=== PATIENT | male | born 1950 | race Asian ===

== ENCOUNTER 2016-08-13 16:53 | Emergency (ER) | payer OTHER ==
[2016-08-13 17:07] VITALS: BP 146/91; PULSE 128; RESP 18; TEMP 98.3; O2SAT 96
[2016-08-13] MEDS ORDERED: OLME0.09 PO (17:13)
[2016-08-13] MEDS ORDERED: LOSA25TA PO (17:13)
[2016-08-13] MEDS ORDERED: HYDR-3533 PO (17:13)
[2016-08-13] MEDS ORDERED: FOLI1TAB6 (17:13)
[2016-08-13] MEDS ORDERED: VITATAB11 (17:13)
[2016-08-13] MEDS ORDERED: TH GCAP (17:13)
[2016-08-13] MEDS ORDERED: VITA2000 PO (17:13)
[2016-08-13] MEDS ORDERED: MULTTAB4 (17:13)
[2016-08-13] MEDS ORDERED: ANTICAP6 (17:14)
[2016-08-13] MEDS ORDERED: KRIL500C2 (17:14)
[2016-08-13] MEDS ORDERED: SODIUM CHLOR 0.9% 1000 ML INJ 1,000 ML IV ONE (18:30)
--- NOTE | 2016-08-13 18:35 | PD ---
HPI Chief Complaint: Alcohol/Drug Intoxication Time Seen by Provider: 18:32 Travel History International Travel<30 days: No Contact w/Intl Traveler<30days: No Traveled to known affect area: No History of Present Illness HPI 66-year-old male presents to the emergency department requesting detox from alcohol. Patient states that he has streaks 4 alcoholic beverages daily for many years. He states he has tried to detox on his own in the past, but is never been successful. The patient states he has never had alcohol withdrawal seizures. He states he has had 2 drinks today. Patient states that please brought him in because he did not feel safe enough to drive. He denies any thoughts of hurting himself or anybody else. Patient has history of hypertension. Patient denies any headache, chest pain, shortness breath, abdominal pain, nausea, vomiting, diarrhea. PFSH Past Medical History Hypertension: Yes Past Surgical History Surgical History: No Previous Surgery Social History Alcohol Use: Yes (2-4 SHOTS/DAILY) Tobacco Use: Yes (1/2 PPD) Substance Use: No Allergies-Medications (Allergen,Severity, Reaction): Coded Allergies: No Known Allergies (Unverified , 08/13/16) Reported Meds & Prescriptions Reported Meds & Active Scripts Active Reported Antioxidant (Multiple Vitamins W/ Minerals) 1 Cap Cap Krill Oil 500 Mg Capsule 300 Vitamin D3 (Cholecalciferol) 2,000 Unit Cap 2,000 Units PO DAILY Glucosamine & Chondroitin Cap (Glucosam/Chondr/Collagn/Hyalur) 1 Each Capsule Multi Vitamin Mens (Multiple Vitamin) 1 Tab Tab Olmesartan 20 Mg Tab 20 Mg PO DAILY Losartan (Losartan Potassium) 25 Mg Tab 12.5 Mg PO DAILY Lortab (Hydrocodone-Acetaminophen) 5-325 Mg Tab 1 Tab PO Q4H PRN Vitamin B Complex (B-Complex Vitamins) 1 Tab Folic Acid 1 Mg Tablet Review of Systems Except as stated in HPI: all other systems reviewed are Neg Physical Exam Narrative GENERAL: Well-nourished, well-developed male patient, afebrile. SKIN: Focused skin assessment warm/dry. HEAD: Normocephalic. Atraumatic. EYES: No scleral icterus. No injection or drainage. NECK: Supple, trachea midline. No JVD or lymphadenopathy. CARDIOVASCULAR: Regular rhythm without murmurs, gallops, or rubs. Patient is slightly tachycardic. RESPIRATORY: Breath sounds equal bilaterally. No accessory muscle use. Lungs sounds are clear to auscultation. GASTROINTESTINAL: Abdomen soft, non-tender, nondistended. MUSCULOSKELETAL: No cyanosis, or edema. PSYCHIATRIC: No delusional thought processes. No hallucinations. Data Data Last Documented VS Vital Signs Date Time Temp Pulse Resp B/P Pulse Ox O2 Delivery O2 Flow Rate FiO2 08/13/16 18:48 98.6 106 18 166/82 97 Room Air Orders Iv Access Insert/Monitor (08/13/16 18:29) Complete Blood Count With Diff (08/13/16 18:29) Alcohol (Ethanol) (08/13/16 18:29) Comprehensive Metabolic Panel (08/13/16 18:29) Sodium Chlor 0.9% 1000 Ml Inj (Ns 1000 M (08/13/16 18:30) Labs Laboratory Tests Test 08/13/16 18:45 White Blood Count 6.0 TH/MM3 Red Blood Count 3.89 MIL/MM3 Hemoglobin 14.2 GM/DL Hematocrit 42.7 % Mean Corpuscular Volume 109.6 FL Mean Corpuscular Hemoglobin 36.4 PG Mean Corpuscular Hemoglobin 33.2 % Concent Red Cell Distribution Width 13.6 % Platelet Count 113 TH/MM3 Mean Platelet Volume 7.5 FL Neutrophils (%) (Auto) 71.0 % Lymphocytes (%) (Auto) 17.6 % Monocytes (%) (Auto) 11.1 % Eosinophils (%) (Auto) 0.1 % Basophils (%) (Auto) 0.2 % Neutrophils # (Auto) 4.3 TH/MM3 Lymphocytes # (Auto) 1.1 TH/MM3 Monocytes # (Auto) 0.7 TH/MM3 Eosinophils # (Auto) 0.0 TH/MM3 Basophils # (Auto) 0.0 TH/MM3 CBC Comment DIFF FINAL Differential Comment Sodium Level 135 MEQ/L Potassium Level 4.7 MEQ/L Chloride Level 95 MEQ/L Carbon Dioxide Level 20.9 MEQ/L Anion Gap 19 MEQ/L Blood Urea Nitrogen 10 MG/DL Creatinine 0.70 MG/DL Estimat Glomerular Filtration 113 ML/MIN Rate Random Glucose 78 MG/DL Calcium Level 8.2 MG/DL Total Bilirubin 0.9 MG/DL Aspartate Amino Transf 105 U/L (AST/SGOT) Alanine Aminotransferase 35 U/L (ALT/SGPT) Alkaline Phosphatase 65 U/L Total Protein 7.0 GM/DL Albumin 2.9 GM/DL Ethyl Alcohol Level 324 MG/DL [facility] Medical Decision Making Medical Screen Exam Complete: Yes Emergency Medical Condition: Yes Medical Record Reviewed: Yes Differential Diagnosis Alcohol intoxication versus electrolyte abnormality versus dehydration Narrative Course 66-year-old male presents to the emergency department requesting detox from alcohol. Patient denies any medical complaints at this time. He is slightly tachycardic on arrival, heart rate 128. CBC, CMP, alcohol level are ordered and pending. Patient is given normal saline 1 L IV bolus. [facility] be [facility] to see if [facility] have a male detox bed available. CBC shows no acute abnormality. CMP shows anion gap of 19, most likely due to alcohol. Alcohol level is 324. I called [facility] who states they are at capacity for male detox beds. The patient will be given information to contact [facility] to see if a bed becomes available. Patient will be discharge once he is clinically sober or if he can contact somebody to give him a ride home. The patient was discharged in stable condition with instructions, including return instructions and follow up instructions. Diagnosis Primary Impression: Alcohol intoxication Qualified Code: F10.920 - Alcohol intoxication, uncomplicated Referrals: [facility] for appointment Patient Instructions: Alcohol Intoxication (ED), General Instructions Additional Instructions: Please call [facility] to see when a bed becomes available for detox. Follow-up with your primary care physician. Return to the emergency department for any acute worsening of symptoms. Med/Other Pt SpecificInfo: No Change to Meds Disposition: 01 DISCHARGE HOME Condition: Stable Danita Carr Aug 13, 2016 18:35
[2016-08-13 18:48] VITALS: BP 166/82; PULSE 106; RESP 18; TEMP 98.6; O2SAT 97
[2016-08-13 18:54] LABS: AUTOMATED NEUTROPHIL # 4.3 TH/MM3 (1.8-7.7); BASOPHIL % 0.2 % (0.0-2.0); EOSINOPHIL % 0.1 % (0.0-4.0); HEMATOCRIT 42.7 % (39.0-51.0); HEMO FLAGS DIFF FINAL; LYMPH % 17.6 % (9.0-44.0); LYMPHOCYTE # 1.1 TH/MM3 (1.0-4.8); MEAN CELL VOLUME 109.6 FL (80.0-100.0); MEAN CORPUSCULAR HEMOGLOBIN 36.4 PG (27.0-34.0); MEAN CORPUSCULAR HGB CONC 33.2 % (32.0-36.0); MONO % 11.1 % (0.0-8.0); PLATELET COUNT 113 TH/MM3 (150-450); RED BLOOD COUNT 3.89 MIL/MM3 (4.50-5.90); RED CELL DISTRIBUTION WIDTH 13.6 % (11.6-17.2)
[2016-08-13 19:16] LABS: ALKALINE PHOSPHATASE 65 U/L (45-117); ALT (GPT) 35 U/L (12-78); ANION GAP 19 MEQ/L (5-15); AST (GOT) 105 U/L (15-37); BICARBONATE 20.9 MEQ/L (21.0-32.0); BLOOD UREA NITROGEN 10 MG/DL (7-18); CHLORIDE 95 MEQ/L (98-107); GLOMERULAR FILTRATION RATE 113 ML/MIN (>89); POTASSIUM 4.7 MEQ/L (3.5-5.1); SODIUM (NA) 135 MEQ/L (136-145); TOTAL BILIRUBIN ADULT 0.9 MG/DL (0.2-1.0)
[2016-08-14 01:22] VITALS: BP 156/78; PULSE 98; RESP 16; O2SAT 98
[2016-08-14 04:26] VITALS: BP_SYST 138; BP_SYST 18; BP_DIAS 76; PULSE 96; RESP 16; O2SAT 96
[2016-08-14 06:30] VITALS: BP 140/74; PULSE 94; RESP 14; O2SAT 98
[2016-08-14 07:25] VITALS: BP 139/91
== END 2016-08-14 07:24 | disposition home or self-care (01) ==
LOC: NEPD 16:53
DX: F10.120 Alcohol abuse with intoxication, uncomplicated (principal); R00.0 Tachycardia, unspecified; R56.9 Unspecified convulsions; I10 Essential (primary) hypertension; F17.200 Nicotine dependence, unspecified, uncomplicated; Z79.899 Other long term (current) drug therapy
CPT/HCPCS: 80053; 80307; 85025; 96360; 96361; 99284; J7030

== ENCOUNTER 2016-08-16 06:06 | Emergency (ER) | payer OTHER ==
[~2016-08-16] VITALS: Ht 170.2 cm; Wt 62.0 kg
[~2016-08-16 06:06] MED LIST: ANTICAP6; FOLI1TAB6; HYDR-3533 PO; KRIL500C2; LOSA25TA PO; MULTTAB4; OLME0.09 PO; TH GCAP; VITA2000 PO; VITATAB11
[2016-08-16 06:13] VITALS: BP 145/88; PULSE 90; RESP 16; O2SAT 97
--- NOTE | 2016-08-16 06:45 | PD ---
HPI Chief Complaint: Fall Time Seen by Provider: 06:45 Travel History International Travel<30 days: No Contact w/Intl Traveler<30days: No Traveled to known affect area: No History of Present Illness HPI 66-year-old male came to the emergency room from [facility] after he fell and injured his forehead. Patient was brought in collared. He was just taken to [facility] yesterday for alcohol rehabilitation. Patient is little tachycardic and shaky. This is the second time he is falling in past 24 hours. Currently he is awake and says he knows he is in [place] but could not narrow it down any further. PFSH Past Medical History Narrative Medical List of his past medical, surgical, social and family history was reviewed from the nursing note. Hypertension: Yes Medical other: Yes (ETOH ABUSE) Past Surgical History Surgical History: No Previous Surgery Social History Alcohol Use: Yes (2-4 SHOTS/DAILY) Tobacco Use: Yes (1/2 PPD) Substance Use: No Allergies-Medications (Allergen,Severity, Reaction): Coded Allergies: No Known Allergies (Unverified , 08/16/16) Comments No known drug allergies. Reported Meds & Prescriptions Reported Meds & Active Scripts Active Reported Antioxidant (Multiple Vitamins W/ Minerals) 1 Cap Cap Krill Oil 500 Mg Capsule 300 Vitamin D3 (Cholecalciferol) 2,000 Unit Cap 2,000 Units PO DAILY Glucosamine & Chondroitin Cap (Glucosam/Chondr/Collagn/Hyalur) 1 Each Capsule Multi Vitamin Mens (Multiple Vitamin) 1 Tab Tab Olmesartan 20 Mg Tab 20 Mg PO DAILY Losartan (Losartan Potassium) 25 Mg Tab 12.5 Mg PO DAILY Lortab (Hydrocodone-Acetaminophen) 5-325 Mg Tab 1 Tab PO Q4H PRN Vitamin B Complex (B-Complex Vitamins) 1 Tab Folic Acid 1 Mg Tablet Narrative Medication List of her past medical, surgical, social and family history was reviewed from the nursing note. Review of Systems Except as stated in HPI: all other systems reviewed are Neg Physical Exam Narrative GENERAL: Awake, confused, no obvious distress SKIN: Focused skin assessment warm/dry. 2 cm linear laceration on the forehead that has Steri-Strips. No active bleeding HEAD: Atraumatic. Normocephalic. EYES: Pupils equal and round. No scleral icterus. No injection or drainage. ENT: No nasal bleeding or discharge. Mucous membranes pink and moist. NECK: Trachea midline. No JVD. CARDIOVASCULAR: Regular rate and rhythm. No murmur appreciated. RESPIRATORY: No accessory muscle use. Clear to auscultation. Breath sounds equal bilaterally. GASTROINTESTINAL: Abdomen soft, non-tender, nondistended. Hepatic and splenic margins not palpable. MUSCULOSKELETAL: No obvious deformities. No clubbing. No cyanosis. No edema. NEUROLOGICAL: Awake and alert. No obvious cranial nerve deficits. Motor grossly within normal limits. Normal speech. PSYCHIATRIC: Appropriate mood and affect; insight and judgment normal. Data Data Last Documented VS Vital Signs Date Time Temp Pulse Resp B/P Pulse Ox O2 Delivery O2 Flow Rate FiO2 08/16/16 08:45 86 16 138/[address] Brain W/O Iv Contrast(Rout) (08/16/16 ) Ct Cerv Spine W/O Contrast (08/16/16 ) Tetanus/Diphtheria Tox Adult (Tetanus/Di (08/16/16 07:00) MDM Medical Decision Making Medical Screen Exam Complete: Yes Emergency Medical Condition: Yes Medical Record Reviewed: Yes Differential Diagnosis Intracranial bleed, cervical fracture Narrative Course 6:[address] scan of the head and C-spine has been ordered. Patient's tetanus status is unknown. I've ordered a tetanus shot here. Patient will be signed over to the oncoming ER physician. Procedures EKG Prior to Arrival: Sandi Garcia MD Aug 16, 2016 06:45 EKG Prior to Arrival: Sandi Garcia MD Aug 16, 2016 06:45
[2016-08-16] MEDS ORDERED: TETANUS/DIPHTHERIA TOXOID ADULT 0.5 ML VIAL IM ONE (07:00)
--- NOTE | 2016-08-16 07:08 | RADRPT ---
EXAM DATE/TIME: 08/16/2016 06:52 [facility] COMPARISON: No previous studies available for comparison. INDICATIONS : Trauma; fall. RADIATION DOSE: 56.35 CTDIvol (mGy) MEDICAL HISTORY : Hypertension. ETOH abuse SURGICAL HISTORY : None. ENCOUNTER: Initial ACUITY: 1 day PAIN SCALE: 5/10 LOCATION: cranial TECHNIQUE: Multiple contiguous axial images were obtained of the head. Using automated exposure control and adj ustment of the mA and/or kV according to patient size, radiation dose was kept as low as reasonably a chievable to obtain optimal diagnostic quality images. DICOM format image data is available electro nically for review and comparison. FINDINGS: CEREBRUM: The ventricles are normal for age. No evidence of midline shift, mass lesion, hemorrhage or acute in farction. No extra-axial fluid collections are seen. POSTERIOR FOSSA: The cerebellum and brainstem are intact. The 4th ventricle is midline. The cerebellopontine angle i s unremarkable. EXTRACRANIAL: The visualized portion of the orbits is intact. SKULL: The calvaria is intact. No evidence of skull fracture. CONCLUSION: Normal examination for a patient of this age. Thanh Herrera MD on August 16, 2016 at 7:05 Board Certified Radiologist. This report was verified electronically.
--- NOTE | 2016-08-16 07:12 | RADRPT ---
EXAM DATE/TIME: 08/16/2016 06:54 [facility] COMPARISON: No previous studies available for comparison. INDICATIONS : Trauma; fall. RADIATION DOSE: 33.31 CTDIvol (mGy) MEDICAL HISTORY : Hypertension. ETOH abuse SURGICAL HISTORY : None. ENCOUNTER: Initial ACUITY: 1 day PAIN SCALE: 5/10 LOCATION: neck TECHNIQUE: Volumetric scanning of the cervical spine was performed. Multiplanar reconstructions in the sagittal, coronal and oblique axial planes were performed. Using automated exposure control and adjustment o f the mA and/or kV according to patient size, radiation dose was kept as low as reasonably achievable to obtain optimal diagnostic quality images. DICOM format image data is available electronically f or review and comparison. FINDINGS: VERTEBRAE: Moderate diffuse primary degenerative changes are noted throughout the cervical spine. There is disc degeneration with disc space narrowing at multiple levels. There is mild anterior subluxation of C7 o guy T1 by approximately 3 mm. No acute bony fracture is demonstrated. ALIGNMENT: No evidence of subluxation. C2-C3: The bony spinal canal is normal in size. No evidence of disc bulge or herniation. The neural forami na are bilaterally patent. C3-C4: The bony spinal canal is normal in size. No evidence of disc bulge or herniation. The neural forami na are bilaterally patent. C4-C5: The bony spinal canal is normal in size. No evidence of disc bulge or herniation. There is narrowing of the left neural foramina from facet arthritis. C5-C6: Broad-based bulging disc osteophyte complex. Narrowing of the neural foramina bilaterally. C6-C7: Broad-based bulging disc osteophyte complex. The neural foramina are patent. C7-T1: The bony spinal canal is normal in size. No evidence of disc bulge or herniation. The neural forami na are bilaterally patent. CONCLUSION: 1. No acute bony fracture. 2. Moderate diffuse primary bony degenerative changes, disc degeneration and disc space narrowing thr oughout the cervical spine. 3. Mild anterior subluxation of C7 over T1 most likely from laxity of ligaments. Thanh Herrera MD on August 16, 2016 at 7:06 Board Certified Radiologist. This report was verified electronically.
--- NOTE | 2016-08-16 08:34 | PD ---
Physical Exam Narrative Received sign out from previous provider to follow up CT brain and cspine results and reevaluate patient. 66yo M from [facility] here after fall. CT cspine showed no acute bony fracture. Degenerative changes. There is mild anterior subluxation of C7 over T1 most likely from laxity of ligaments. Informed pt to follow up as needed. CT brain negative. Pt does not have any current complaints. No focal neurologic deficits. Data Data Last Documented VS Vital Signs Date Time Temp Pulse Resp B/P Pulse Ox O2 Delivery O2 Flow Rate FiO2 08/16/16 06:18 102 16 98 Room Air 08/16/16 06:13 145/[address] Brain W/O Iv Contrast(Rout) (08/16/16 ) Ct Cerv Spine W/O Contrast (08/16/16 ) Tetanus/Diphtheria Tox Adult (Tetanus/Di (08/16/16 07:00) MDM Supervised Visit with AMOL: No Diagnosis Primary Impression: Fall Qualified Code: W19.XXXA - Fall, initial encounter Patient Instructions: General Instructions Departure Forms: Tests/Procedures Additional Instruction: Patient is to go back to [facility] Chasity Hubbard DO Aug 16, 2016 08:34
[2016-08-16 08:45] VITALS: BP 138/72
== END 2016-08-16 08:52 | disposition home or self-care (01) ==
LOC: NEPC 06:06
DX: S13.180A Subluxation of C7/T1 cervical vertebrae, initial encounter (principal); S01.81XA Laceration without foreign body of other part of head, initial encounter; I10 Essential (primary) hypertension; F17.200 Nicotine dependence, unspecified, uncomplicated; W19.XXXA Unspecified fall, initial encounter; Z91.81 History of falling; Z79.899 Other long term (current) drug therapy; Z23 Encounter for immunization
CPT/HCPCS: 70450; 72125; 90471; 90714

== ENCOUNTER 2016-10-31 19:54 | Inpatient (IN) | payer OTHER, MEDICARE ==
[~2016-10-31] VITALS: Ht 170.2 cm; Wt 58.6 kg
[2016-10-31 19:58] VITALS: BP 140/99; PULSE 135; RESP 14; TEMP 98.4; O2SAT 99
[2016-10-31] MEDS ORDERED: SODIUM CHLOR 0.9% 1000 ML INJ 1,000 ML IV ONE (20:08)
[2016-10-31] MEDS ORDERED: SODIUM CHLORIDE 0.9% FLUSH 10 ML FLUSH IVF PRN ×2 (20:15→22:45)
[2016-10-31] MEDS ORDERED: THIAMINE INJ 100 MG in SODIUM CHLORIDE 0.9% INJ 100 ML IV ONE (20:15)
--- NOTE | 2016-10-31 20:15 | PD ---
HPI Chief Complaint: Alcohol/Drug Intoxication Time Seen by Provider: 20:08 Travel History International Travel<30 days: No Contact w/Intl Traveler<30days: No Traveled to known affect area: No History of Present Illness HPI 66-year-old male presents to the emergency department by EMS transport from home where daughter found him on the floor. Unknown downtime. Patient lives in a duplex next to his daughter. Patient was found in a very disheveled soiled and dirty apartment on the floor. Patient denies head pain neck pain back pain chest pain abdominal pain pelvic pain or extremity pain. Patient admits to daily alcohol use and thinks he has not had any alcohol for 10 days. Patient has had bowel and bladder incontinence-patient reports that his cat urinated on him. Patient does not know these had fever or chills. Patient does have history of alcoholism and hypertension. Patient does not know if he taken his blood pressure medications. EMS glucose was 123. PFSH Past Medical History Narrative Medical Hypertension alcoholism tobaccoism; nursing notes reviewed Diminished Hearing: No Hypertension: Yes Tetanus Vaccination: < 5 Years Influenza Vaccination: No Past Surgical History Surgical History: No Previous Surgery Social History Alcohol Use: Yes (denies use in 10 days) Tobacco Use: Yes (1/2 PPD) Substance Use: No Allergies-Medications (Allergen,Severity, Reaction): Coded Allergies: No Known Allergies (Unverified , 10/31/16) Reported Meds & Prescriptions Reported Meds & Active Scripts Active Reported Antioxidant (Multiple Vitamins W/ Minerals) 1 Cap Cap Krill Oil 500 Mg Capsule 300 Vitamin D3 (Cholecalciferol) 2,000 Unit Cap 2,000 Units PO DAILY Glucosamine & Chondroitin Cap (Glucosam/Chondr/Collagn/Hyalur) 1 Each Capsule Multi Vitamin Mens (Multiple Vitamin) 1 Tab Tab Olmesartan 20 Mg Tab 20 Mg PO DAILY Losartan (Losartan Potassium) 25 Mg Tab 12.5 Mg PO DAILY Lortab (Hydrocodone-Acetaminophen) 5-325 Mg Tab 1 Tab PO Q4H PRN Vitamin B Complex (B-Complex Vitamins) 1 Tab Folic Acid 1 Mg Tablet Review of Systems ROS Limitations: Poor Historian Except as stated in HPI: all other systems reviewed are Neg Physical Exam Narrative GENERAL: Well-developed well-nourished disheveled male in no acute distress no respiratory distress vital signs notes mild hypertension and sinus tachycardia GCS 14, mildly confused SKIN: Warm and dry. HEAD: Atraumatic. Normocephalic. No scalp soft tissue swelling hematoma abrasion or laceration extraocular muscles intact EYES: Pupils equal and round. No scleral icterus. No injection or drainage. ENT: No nasal bleeding or discharge. Mucous membranes pink and moist. NECK: Trachea midline. No JVD. No midline tenderness to direct palpation no bony step-off. CARDIOVASCULAR: Regular rate and rhythm. RESPIRATORY: No accessory muscle use. Clear to auscultation. Breath sounds equal bilaterally. GASTROINTESTINAL: Abdomen soft, non-tender, nondistended. Hepatic and splenic margins not palpable. MUSCULOSKELETAL: Extremities without clubbing, cyanosis, or edema. No obvious deformities. NEUROLOGICAL: Awake and alert. No obvious cranial nerve deficits. Motor grossly within normal limits. Five out of 5 muscle strength in the arms and legs. Normal speech. PSYCHIATRIC: Appropriate mood and affect; insight and judgment normal. Data Data Last Documented VS Vital Signs Date Time Temp Pulse Resp B/P (MAP) Pulse Ox O2 Delivery O2 Flow Rate FiO2 10/31/16 21:16 125 15 138/98 (111) 100 Room Air 10/31/16 19:58 98.4 Orders Orders Electrocardiogram (10/31/16 20:08) Complete Blood Count With Diff (10/31/16 20:08) Comprehensive Metabolic Panel (10/31/16 20:08) Magnesium (Mg) (10/31/16 20:08) Ckmb (Isoenzyme) Profile (10/31/16 20:08) Troponin I (10/31/16 20:08) Act Partial Throm Time (Ptt) (10/31/16 20:08) Prothrombin Time / Inr (Pt) (10/31/16 20:08) Urinalysis - C+S If Indicated (10/31/16 20:08) Ct Brain W/O Iv Contrast(Rout) (10/31/16 20:08) Blood Glucose (10/31/16 20:08) Ecg Monitoring (10/31/16 20:08) Iv Access Insert/Monitor (10/31/16 20:08) Oximetry (10/31/16 20:08) Sodium Chloride 0.9% Flush (Ns Flush) (10/31/16 20:15) Sodium Chlor 0.9% 1000 Ml Inj (Ns 1000 M (10/31/16 20:08) Drug Screen, Random Urine (10/31/16 20:08) Alcohol (Ethanol) (10/31/16 20:08) Thiamine Inj (Thiamine Inj) (10/31/16 20:15) Lactic Acid (10/31/16 20:08) Blood Culture (10/31/16 20:08) Ct Cerv Spine W/O Contrast (10/31/16 ) CKMB (10/31/16 21:00) CKMB% (10/31/16 21:00) Chest, Single Ap (10/31/16 ) Lorazepam Inj (Ativan Inj) (10/31/16 22:30) Vital Signs (Adult) Q4H (10/31/16 22:33) Bedside Glucose FRIDA.AC&HS (10/31/16 22:33) Intake + Output FRIDA.QSHIFT (10/31/16 22:33) Alcohol Withdrawal Asmt-Ciwa Q4HX18 (10/31/16 22:33) ^ Seizure Precautions (10/31/16 22:33) Folic Acid (Folate) (11/01/16 09:00) Thiamine (Vit B1) (Vitamin B1) (11/01/16 09:00) Multivitamins-Minerals Therap (Theragran (11/01/16 09:00) Consult Cm-Etoh Abuse Dc Plan (10/31/16 ) Flumazenil Inj (Romazicon Inj) (10/31/16 22:45) Lorazepam (Ativan) (10/31/16 22:45) Lorazepam Inj (Ativan Inj) (10/31/16 22:45) Lorazepam (Ativan) (10/31/16 22:45) Lorazepam Inj (Ativan Inj) (10/31/16 22:45) Lorazepam Inj (Ativan Inj) (10/31/16 22:45) Lorazepam Inj (Ativan Inj) (10/31/16 22:45) Haloperidol Inj (Haldol Inj) (10/31/16 22:45) Admit To Inpatient (10/31/16 ) Vital Signs (Adult) Q4H (10/31/16 22:33) Activity Oob With Assistance (10/31/16 22:33) Table Assembler / Telemetry .CONTINUOUS (10/31/16 22:33) Intake + Output FRIDA.QSHIFT (10/31/16 22:33) Diet Regular Basic (11/01/16 Breakfast) Sodium Chlor 0.9% 1000 Ml Inj (Ns 1000 M (10/31/16 22:33) Sodium Chloride 0.9% Flush (Ns Flush) (10/31/16 22:45) Sodium Chloride 0.9% Flush (Ns Flush) (11/01/16 09:00) Ondansetron Inj (Zofran Inj) (10/31/16 22:45) Comprehensive Metabolic Panel (11/01/16 09:00) Complete Blood Count With Diff (11/01/16 09:00) Creatine Kinase (Cpk) (11/01/16 03:00) Creatine Kinase (Cpk) (11/01/16 09:00) Troponin I (11/01/16 03:00) Troponin I (11/01/16 09:00) Scd Bilateral/Knee High FRIDA.BID (10/31/16 22:33) Peewee Bilateral/Knee High FRIDA.QSHIFT (10/31/16 22:36) Acetaminophen (Tylenol) (10/31/16 22:45) Docusate Sodium-Senna (Marylu-Colace) (11/01/16 09:00) Magnesium Hydroxide Liq (Milk Of Magnesi (10/31/16 22:45) Sennosides (Senokot) (10/31/16 22:45) Bisacodyl Supp (Dulcolax Supp) (10/31/16 22:45) Lactulose Liq (Lactulose Liq) (10/31/16 22:45) Inpatient Certification (10/31/16 ) Admit Order (Ed Use Only) (10/31/16 ) ^ Saline Lock (10/31/16 22:42) Resp Oxygen Tree C Titrat 1-4 L (10/31/16 ) Notify Dr: Other (10/31/16 22:42) Sodium Chloride 0.9% Flush (Ns Flush) (11/01/16 09:00) Sodium Chloride 0.9% Flush (Ns Flush) (10/31/16 22:45) Labs Laboratory Tests Test 10/31/16 20:55 10/31/16 21:00 Lactic Acid Level 3.2 mmol/L White Blood Count 6.2 TH/MM3 Red Blood Count 4.03 MIL/MM3 Hemoglobin 14.1 GM/DL Hematocrit 43.2 % Mean Corpuscular Volume 107.2 FL Mean Corpuscular Hemoglobin 35.0 PG Mean Corpuscular Hemoglobin Concent 32.6 % Red Cell Distribution Width 14.9 % Platelet Count 129 TH/MM3 Mean Platelet Volume 7.9 FL CBC Comment AUTO DIFF Differential Total Cells Counted 100 Neutrophils % (Manual) 64 % Band Neutrophils % 7 % Lymphocytes % 13 % Monocytes % 16 % Neutrophils # (Manual) 4.4 TH/MM3 Differential Comment FINAL DIFF MANUAL Platelet Estimate LOW Platelet Morphology Comment NORMAL Red Cell Morphology Comment NORMAL Prothrombin Time 10.0 SEC Prothromb Time International Ratio 0.9 RATIO Activated Partial Thromboplast Time 20.1 SEC Blood Urea Nitrogen 39 MG/DL Creatinine 1.60 MG/DL Random Glucose 119 MG/DL Total Protein 7.1 GM/DL Albumin 3.2 GM/DL Calcium Level 8.8 MG/DL Magnesium Level 2.6 MG/DL Alkaline Phosphatase 63 U/L Aspartate Amino Transf (AST/SGOT) 81 U/L Alanine Aminotransferase (ALT/SGPT) 24 U/L Total Bilirubin 1.6 MG/DL Sodium Level 146 MEQ/L Potassium Level 3.4 MEQ/L Chloride Level 105 MEQ/L Carbon Dioxide Level 24.5 MEQ/L Anion Gap 17 MEQ/L Estimat Glomerular Filtration Rate 44 ML/MIN Total Creatine Kinase 511 U/L Creatine Kinase MB 5.3 NG/ML Creatine Kinase MB % 1.0 % Troponin I 0.08 NG/ML Ethyl Alcohol Level LESS THAN 3 MG/DL [facility] Medical Decision Making Medical Screen Exam Complete: Yes Emergency Medical Condition: Yes Medical Record Reviewed: Yes Interpretation(s) EKG: Sinus tachycardia rate 128 PT waves consistent with pulmonary disease left anterior fascicular block no acute ST segment elevation no ectopy Differential Diagnosis Altered mental status, syncope, seizure, alcohol withdrawal, sepsis, electrolyte disturbance, minor closed head injury, ICH, cervical spine sprain strain fracture cord injury GI bleed Narrative Course Patient placed on cardiac technician IV access obtained specimens collected and sent for resulting patient administered thiamine 100 mg IV as well as normal saline bolus HemaPrompt Point of Care Internal Pos. & Neg. Controls: Passed Fecal Specimen Occult Blood: Negative Diagnosis Primary Impression: Syncope and collapse Additional Impressions: Alcohol withdrawal Dehydration Elevated troponin I level Acute kidney injury Admitting Information Admitting Physician Requests: Admit Fiona Rosario MD Oct 31, 2016 20:15
[2016-10-31 21:02] VITALS: O2SAT 99
[2016-10-31 21:14] LABS: HEMATOCRIT 43.2 % (39.0-51.0); MEAN CELL VOLUME 107.2 FL (80.0-100.0); MEAN CORPUSCULAR HGB CONC 32.6 % (32.0-36.0); PLATELET COUNT 129 TH/MM3 (150-450); RED BLOOD COUNT 4.03 MIL/MM3 (4.50-5.90); RED CELL DISTRIBUTION WIDTH 14.9 % (11.6-17.2); WHITE BLOOD COUNT 6.2 TH/MM3 (4.0-11.0)
[2016-10-31 21:16] VITALS: BP 138/98; PULSE 125; RESP 15; O2SAT 100
[2016-10-31 21:22] LABS: CHLORIDE 105 MEQ/L (98-107); POTASSIUM 3.4 MEQ/L (3.5-5.1); SODIUM (NA) 146 MEQ/L (136-145)
[2016-10-31 21:26] LABS: ANION GAP 17 MEQ/L (5-15); BICARBONATE 24.5 MEQ/L (21.0-32.0); BLOOD UREA NITROGEN 39 MG/DL (7-18); MAGNESIUM 2.6 MG/DL (1.5-2.5)
[2016-10-31 21:29] LABS: ALT (GPT) 24 U/L (12-78); AST (GOT) 81 U/L (15-37); GLOMERULAR FILTRATION RATE 44 ML/MIN (>89)
[2016-10-31 21:30] LABS: TOTAL BILIRUBIN ADULT 1.6 MG/DL (0.2-1.0)
[2016-10-31 21:31] LABS: ALCOHOL LESS THAN 3 MG/DL (0-5)
[2016-10-31 21:32] LABS: ALKALINE PHOSPHATASE 63 U/L (45-117); CREATINE KINASE 511 U/L (39-308)
[2016-10-31 21:34] LABS: APTT (PATIENT) 20.1 SEC (24.3-30.1); INTERNATIONAL NORMALIZED RATIO 0.9 RATIO
[2016-10-31 21:35] LABS: HEMO FLAGS AUTO DIFF
[2016-10-31 21:38] LABS: BANDS 7 % (0-6); NEUTROPHIL # MANUAL DIFF 4.4 TH/MM3 (1.8-7.7); PLATELET ESTIMATE SMEAR LOW (NORMAL); PLATELET MORPHOLOGY NORMAL (NORMAL); POLYS (SEG NEUTROPHILS) 64 % (16-70); SCAN/DIFF FINAL DIFF MANUAL; WBC DIFF SAMPLE 100
[2016-10-31 21:44] LABS: CKMB 5.3 NG/ML (0.5-3.6)
--- NOTE | 2016-10-31 22:02 | RADRPT ---
EXAM DATE/TIME: 10/31/2016 21:40 [facility] COMPARISON: No previous studies available for comparison. INDICATIONS : Status post unwitnessed fall. Patient found on floor. RADIATION DOSE: 66.37 CTDIvol (mGy) MEDICAL HISTORY : None SURGICAL HISTORY : None. ENCOUNTER: Initial ACUITY: PAIN SCALE: 0/10 LOCATION: cranial TECHNIQUE: Multiple contiguous axial images were obtained of the head. Using automated exposure control and adj ustment of the mA and/or kV according to patient size, radiation dose was kept as low as reasonably a chievable to obtain optimal diagnostic quality images. DICOM format image data is available electro nically for review and comparison. FINDINGS: CEREBRUM: The ventricles are normal for age. No evidence of midline shift, mass lesion, hemorrhage or acute in farction. No extra-axial fluid collections are seen. POSTERIOR FOSSA: The cerebellum and brainstem are intact. The 4th ventricle is midline. The cerebellopontine angle i s unremarkable. EXTRACRANIAL: The visualized portion of the orbits is intact. SKULL: The calvaria is intact. No evidence of skull fracture. CONCLUSION: Normal examination for a patient of this age. No significant change has occurred. Jerod Kim MD on October 31, 2016 at 21:56 Board Certified Radiologist. This report was verified electronically.
--- NOTE | 2016-10-31 22:06 | RADRPT ---
EXAM DATE/TIME: 10/31/2016 21:40 [facility] COMPARISON: CT CERVICAL SPINE W/O CONTRAST, August 16, 2016, 6:54. INDICATIONS : Status post unwitnessed fall. Patient found on floor. RADIATION DOSE: 26.56 CTDIvol (mGy) MEDICAL HISTORY : None SURGICAL HISTORY : None. ENCOUNTER: Initial ACUITY: 1 day PAIN SCALE: 0/10 LOCATION: neck TECHNIQUE: Volumetric scanning of the cervical spine was performed. Multiplanar reconstructions in the sagittal, coronal and oblique axial planes were performed. Using automated exposure control and adjustment o f the mA and/or kV according to patient size, radiation dose was kept as low as reasonably achievable to obtain optimal diagnostic quality images. DICOM format image data is available electronically f or review and comparison. FINDINGS: No acute fracture. Minimal anterolisthesis of C7 on T1 is stable compared with August 16. No prevertebr al soft tissue swelling. Moderate degenerative disc disease. CONCLUSION: 1. Moderate disc disease. No acute fracture. Stable spondylolisthesis of C7 on T1. No prevertebral so ft tissue swelling. No significant change from July 2016. Jerod Kim MD on October 31, 2016 at 22:01 Board Certified Radiologist. This report was verified electronically.
[2016-10-31] MEDS ORDERED: LORazepam 2 MG/ML VIAL IV PUSH ONE (22:30)
--- NOTE | 2016-10-31 22:37 | RADRPT ---
EXAM DATE/TIME: 10/31/2016 22:26 [facility] COMPARISON: No previous studies available for comparison. INDICATIONS : Syncope. MEDICAL HISTORY : Hypertension. ETOH abuse SURGICAL HISTORY : None. ENCOUNTER: Initial ACUITY: 1 day PAIN SCORE: 03/04 LOCATION: Bilateral chest FINDINGS: A single view of the chest demonstrates the lungs to be symmetrically aerated without evidence of mas s, infiltrate or effusion. The cardiomediastinal contours are unremarkable. Osseous structures are intact. CONCLUSION: No acute disease. Jerod Kim MD on October 31, 2016 at 22:34 Board Certified Radiologist. This report was verified electronically.
[2016-10-31] MEDS ORDERED: FLUMAZENIL 0.5 MG/5 ML VIAL IV PUSH PRN (22:45)
[2016-10-31] MEDS ORDERED: MAGNESIUM HYDROXIDE SUSP 30 ML CUP PO PRN (22:45)
[2016-10-31] MEDS ORDERED: HALOPERIDOL LACTATE 5 MG/ML AMP IM PRN (22:45)
[2016-10-31] MEDS ORDERED: LACTULOSE SYRUP 20 GM/30 ML CUP PO PRN (22:45)
[2016-10-31] MEDS ORDERED: ONDANSETRON HCL 4 MG/2 ML VIAL IVP PRN (22:45)
[2016-10-31] MEDS ORDERED: ACETAMINOPHEN 325 MG TAB PO PRN (22:45)
[2016-10-31] MEDS ORDERED: SODIUM CHLORIDE 0.9% FLUSH 10 ML FLUSH IV FLUSH PRN (22:45)
[2016-10-31] MEDS ORDERED: LORazepam 2 MG TAB PO PRN (22:45)
[2016-10-31] MEDS ORDERED: BISACODYL 10 MG SUPP RECTAL PRN (22:45)
[2016-10-31] MEDS ORDERED: SENNOSIDES 8.6 MG TAB PO PRN (22:45)
[2016-10-31] MEDS ORDERED: LORazepam 2 MG/ML VIAL IV PUSH PRN ×4 (22:45)
[2016-10-31] MEDS ORDERED: LORazepam 1 MG TAB PO PRN (22:45)
[2016-10-31] MEDS: SODIUM CHLOR 0.9% 1000 ML INJ 1,000 ML IV SCH (23:00)
[2016-10-31 23:42] VITALS: BP 151/97
[2016-11-01] VITALS (10 sets, daily range): BP systolic 134–159; BP diastolic 88–103; PULSE 80–108; RESP 12–20; TEMP 97.4–98.7; O2SAT 92–100
[2016-11-01 03:49] LABS: CKMB 5.2 NG/ML (0.5-3.6)
[2016-11-01] MEDS ORDERED: NON-FORMULARY DRUG (Olmesartan 20 MG) PO SCH (09:00)
[2016-11-01] MEDS ORDERED: SODIUM CHLORIDE 0.9% FLUSH 10 ML FLUSH IV FLUSH SCH (09:00)
[2016-11-01] MEDS: DOCUSATE SODIUM 50 MG/SENNA 8.6 MG TAB PO SCH ×2 (09:00→21:13)
[2016-11-01] MEDS ORDERED: cloNIDine HCL 0.1 MG TAB PO PRN (09:00)
[2016-11-01] MEDS: THIAMINE HCL 100 MG TAB PO SCH (09:25)
[2016-11-01] MEDS: MULTIVITAMINS/MINERALS THERAPEUTIC TAB PO SCH (09:25)
[2016-11-01] MEDS: FOLIC ACID 1 MG TAB PO SCH (09:25)
[2016-11-01] MEDS: SODIUM CHLORIDE 0.9% FLUSH 10 ML FLUSH IV FLUSH SCH ×2 (09:28→21:13)
[2016-11-01] MEDS: SODIUM CHLOR 0.9% 1000 ML INJ 1,000 ML IV SCH ×2 (09:30→21:14)
--- NOTE | 2016-11-01 09:52 | HHI.HP ---
[facility] Primary Care Physician No Primary Care Physician Admission Diagnosis FAll; alcohol withdrawal; dehydratyion; elevated troponin I Diagnoses: (1) Rhabdomyolysis (2) Fall (3) Acute kidney injury (4) Elevated troponin I level (5) Dehydration (6) Alcohol withdrawal Travel History International Travel<30 Days: No Contact w/Intl Traveler <30 Da: No Traveled to Known Affected Are: No History of Present Illness This is a pleasant 66-year-old male with past medical history of alcoholism and hypertension who presented to the ER yesterday after being found laying on the floor by his daughter. E ALLEN was called. The patient states that he quit drinking alcohol 12 days ago and since then has been getting weaker. Yesterday early in the morning he fell and was unable to get back up. He called his daughter who arrived about an hour later. The patient denies injuring himself. He does state that his but is somewhat sore. He denies syncope. Patient denies nausea vomiting diarrhea hematemesis melena. He states he lives with his daughter in a house. Review of Systems Constitutional: DENIES: Fever, Chills Eyes: DENIES: Blurred vision, Diplopia Ears, nose, mouth, throat: DENIES: Tinnitus, Running Nose Respiratory: DENIES: Cough, Shortness of breath Cardiovascular: DENIES: Chest pain, Palpitations Gastrointestinal: DENIES: Abdominal pain, Black stools, Bloody stools, Diarrhea , Nausea, Vomiting Genitourinary: DENIES: Urgency, Dysuria Musculoskeletal: DENIES: Muscle aches Integumentary: DENIES: Pruritus, Rash Hematologic/lymphatic: DENIES: Lymphadenopathy Neurologic: COMPLAINS OF: Abnormal gait, DENIES: Headache Psychiatric: DENIES: Anxiety, Confusion Past Family Social History Past Medical History Hypertension Alcoholism Reported Medications Allergies Coded Allergies Type Severity Reaction Last Updated Verified No Known Allergies 10/31/16 No Active Scripts Medications Dose Route/Sig Max Daily Dose Days Date Category Antioxidant (Multiple Vitamins W/ Minerals) 1 Cap Cap 08/13/16 Reported Krill Oil 500 Mg Capsule 300 08/13/16 Reported Vitamin D3 (Cholecalciferol) 2,000 Unit Cap 2,000 Units PO DAILY 08/13/16 Reported Glucosamine & Chondroitin Cap (Glucosam/Chondr/Collagn/Hyalur) 1 Each Capsule 08/13/16 Reported Multi Vitamin Mens (Multiple Vitamin) 1 Tab Tab 08/13/16 Reported Olmesartan 20 Mg Tab 20 Mg PO DAILY 08/13/16 Reported Losartan (Losartan Potassium) 25 Mg Tab 12.5 Mg PO DAILY 08/13/16 Reported Lortab (Hydrocodone-Acetaminophen) 5-325 Mg Tab 1 Tab PO Q4H PRN 08/13/16 Reported Vitamin B Complex (B-Complex Vitamins) 1 Tab 08/13/16 Reported Folic Acid 1 Mg Tablet 08/13/16 Reported Allergies: Coded Allergies: No Known Allergies (Unverified , 10/31/16) Family History Reviewed and noncontributory Social History As per history of present illness Physical Exam Vital Signs Vital Signs Date Time Temp Pulse Resp B/P (MAP) Pulse Ox O2 Delivery O2 Flow Rate FiO2 11/01/16 08:00 98.4 108 20 158/103 (121) 98 11/01/16 05:50 99 11/01/16 04:05 97.9 82 12 152/95 (114) 96 11/01/16 01:40 106 11/01/16 01:31 97.4 105 14 142/95 (111) 100 10/31/16 23:42 107 16 151/97 (115) 99 10/31/16 21:16 125 15 138/98 (111) 100 Room Air 10/31/16 21:02 99 10/31/16 20:02 99 Room Air 10/31/16 19:58 98.4 135 14 140/99 (113) 99 Physical Exam GENERAL: Well-nourished, well-developed lean [place] male patient. SKIN: Warm and dry. HEAD: Normocephalic. EYES: No scleral icterus. No injection or drainage. NECK: Supple, trachea midline. No JVD or lymphadenopathy. CARDIOVASCULAR: Regular rate and rhythm without murmurs, gallops, or rubs. RESPIRATORY: Breath sounds equal bilaterally. No accessory muscle use. GASTROINTESTINAL: Abdomen soft, non-tender, nondistended. EXTREMITIES: No cyanosis, or edema. NEUROLOGICAL: Awake, alert, and oriented x 3. Non-focal. No tremors. Laboratory Laboratory Tests Test 10/31/16 20:55 10/31/16 21:00 10/31/16 23:12 11/01/16 03:10 Lactic Acid Level 3.2 2.8 White Blood Count 6.2 Red Blood Count 4.03 Hemoglobin 14.1 Hematocrit 43.2 Mean Corpuscular Volume 107.2 Mean Corpuscular Hemoglobin 35.0 Mean Corpuscular Hemoglobin Concent 32.6 Red Cell Distribution Width 14.9 Platelet Count 129 Mean Platelet Volume 7.9 CBC Comment AUTO DIFF Differential Total Cells Counted 100 Neutrophils % (Manual) 64 Band Neutrophils % 7 Lymphocytes % 13 Monocytes % 16 Neutrophils # (Manual) 4.4 Differential Comment FINAL DIFF MANUAL Platelet Estimate LOW Platelet Morphology Comment NORMAL Red Cell Morphology Comment NORMAL Prothrombin Time 10.0 Prothromb Time International Ratio 0.9 Activated Partial Thromboplast Time 20.1 Blood Urea Nitrogen 39 Creatinine 1.60 Random Glucose 119 Total Protein 7.1 Albumin 3.2 Calcium Level 8.8 Magnesium Level 2.6 Alkaline Phosphatase 63 Aspartate Amino Transf (AST/SGOT) 81 Alanine Aminotransferase (ALT/SGPT) 24 Total Bilirubin 1.6 Sodium Level 146 Potassium Level 3.4 Chloride Level 105 Carbon Dioxide Level 24.5 Anion Gap 17 Estimat Glomerular Filtration Rate 44 Total Creatine Kinase 511 628 Creatine Kinase MB 5.3 5.2 Creatine Kinase MB % 1.0 0.8 Troponin I 0.08 0.09 Ethyl Alcohol Level LESS THAN 3 Date/Time Source Procedure Growth Status 10/31/16 21:00 Blood Peripheral Aerobic Blood Culture Pending Received 10/31/16 21:00 Blood Peripheral Anaerobic Blood Culture Pending Received Result Diagram: 10/31/16209910/31/162099 Caprini VTE Risk Assessment Caprini VTE Risk Assessment: Mod/High Risk (score >= 2) Caprini Risk Assessment Model Point Value = 1 Point Value = 2 Point Value = 3 Point Value = 5 Age 41-60 Minor surgery BMI > 25 kg/m2 Swollen legs Varicose veins or History of unexplained or recurrent spontaneous Oral contraceptives or hormone replacement Sepsis (< 1 month) Serious lung disease, including pneumonia (< 1 month) Abnormal pulmonary function Acute myocardial infarction Congestive heart failure (< 1 month) History of inflammatory bowel disease Medical patient at bed rest Age 61-74 Arthroscopic surgery Major open surgery (> 45 min) Laparoscopic surgery (> 45 min) Malignancy Confined to bed (> 72 hours) Immobilizing plaster cast Central venous access Age >= 75 History of VTE Family history of VTE Factor V Leiden Prothrombin [id number] Lupus anticoagulant Anticardiolipin antibodies Elevated serum homocysteine Heparin-induced thrombocytopenia Other congenital or acquired thrombophilia Stroke (< 1 month) Elective arthroplasty Hip, pelvis, or leg fracture Acute spinal cord injury (< 1 month) Prophylaxis Regimen Total Risk Factor Score Risk Level Prophylaxis Regimen 0-1 Low Early ambulation 2 Moderate Order ONE of the following: *Sequential Compression Device (SCD) *Heparin 5000 units SQ BID 3-4 Higher Order ONE of the following medications: *Heparin 5000 units SQ TID *Enoxaparin/Lovenox 40 mg SQ daily (WT < 150 kg, CrCl > 30 mL/min) *Enoxaparin/Lovenox 30 mg SQ daily (WT < 150 kg, CrCl > 10-29 mL/min) *Enoxaparin/Lovenox 30 mg SQ BID (WT < 150 kg, CrCl > 30 mL/min) AND/OR *Sequential Compression Device (SCD) 5 or more Highest Order ONE of the following medications: *Heparin 5000 units SQ TID (Preferred with Epidurals) *Enoxaparin/Lovenox 40 mg SQ daily (WT < 150 kg, CrCl > 30 mL/min) *Enoxaparin/Lovenox 30 mg SQ daily (WT < 150 kg, CrCl > 10-29 mL/min) *Enoxaparin/Lovenox 30 mg SQ BID (WT < 150 kg, CrCl > 30 mL/min) AND *Sequential Compression Device (SCD) Assessment and Plan Assessment and Plan 66-year-old male -Status post fall at home. Continue physical therapy. Head CT and cervical spine CT negative. -Alcoholism, per the patient last drink was 12 days ago. No sign of withdrawal on exam. Continue alcohol withdrawal protocol and rally pack. Case management consulted for alcohol cessation programs. -Rhabdomyolysis. Continue normal saline, follow total CK. -Acute kidney injury secondary to dehydration. Continue IV fluids. -Mild troponin 1 elevation without upward trend. Likely secondary to the rhabdomyolysis. No history of chest pain or coronary artery disease. EKG with sinus tachycardia, left anterior fascicular block. No significant ST changes. -Macrocytosis secondary to alcoholism. Hemoglobin normal. Continue folic acid. -Hypertension. Resume losartan 1 kidney function improved. -DVT prophylaxis with SCDs. Sabine Paul MD Nov 01, 2016 09:52
[2016-11-01 10:07] LABS: AUTOMATED NEUTROPHIL # 3.1 TH/MM3 (1.8-7.7); BASOPHIL % 0.9 % (0.0-2.0); EOSINOPHIL % 0.2 % (0.0-4.0); HEMATOCRIT 41.8 % (39.0-51.0); HEMO FLAGS DIFF FINAL; LYMPH % 16.3 % (9.0-44.0); LYMPHOCYTE # 0.6 TH/MM3 (1.0-4.8); MEAN CORPUSCULAR HEMOGLOBIN 35.1 PG (27.0-34.0); MEAN CORPUSCULAR HGB CONC 32.5 % (32.0-36.0); MONO % 8.5 % (0.0-8.0); NEUT % 74.1 % (16.0-70.0); PLATELET COUNT 116 TH/MM3 (150-450); RED BLOOD COUNT 3.87 MIL/MM3 (4.50-5.90)
[2016-11-01 10:26] LABS: CHLORIDE 112 MEQ/L (98-107); SODIUM (NA) 149 MEQ/L (136-145)
[2016-11-01 10:30] LABS: ANION GAP 14 MEQ/L (5-15); BICARBONATE 23.2 MEQ/L (21.0-32.0); BLOOD UREA NITROGEN 31 MG/DL (7-18)
[2016-11-01 10:33] LABS: ALT (GPT) 23 U/L (12-78); AST (GOT) 69 U/L (15-37); GLOMERULAR FILTRATION RATE 61 ML/MIN (>89)
[2016-11-01 10:34] LABS: TOTAL BILIRUBIN ADULT 0.9 MG/DL (0.2-1.0)
[2016-11-01 10:36] LABS: ALKALINE PHOSPHATASE 56 U/L (45-117); CREATINE KINASE 558 U/L (39-308)
[2016-11-01 10:48] LABS: CKMB 4.5 NG/ML (0.5-3.6)
--- NOTE | 2016-11-01 13:58 | EKG ---
Date Performed: 10/31/2016 Time Performed: 21:06:21 PTAGE: 66 years EKG: SINUS TACHYCARDIA PATTERN CONSISTENT WITH PULMONARY DISEASE LEFT ANTERIOR FASCICULAR BLOCK MINIMAL ST DEPRESSION ABNORMAL ECG NO PREVIOUS TRACING DOCTOR: Clay Ryder Interpretating Date/Time 11/01/2016 13:58:00
[2016-11-02] VITALS (7 sets, daily range): BP systolic 121–159; BP diastolic 74–94; PULSE 59–96; RESP 12–20; TEMP 97.1–98.3; O2SAT 93–100
[2016-11-02] MEDS: SODIUM CHLOR 0.9% 1000 ML INJ 1,000 ML IV SCH ×2 (05:15→21:43)
[2016-11-02] MEDS: SODIUM CHLORIDE 0.9% FLUSH 10 ML FLUSH IV FLUSH SCH ×2 (08:51→21:00)
[2016-11-02] MEDS: DOCUSATE SODIUM 50 MG/SENNA 8.6 MG TAB PO SCH ×3 (08:52→21:00)
[2016-11-02] MEDS: THIAMINE HCL 100 MG TAB PO SCH (08:52)
[2016-11-02] MEDS: MULTIVITAMINS/MINERALS THERAPEUTIC TAB PO SCH (08:52)
[2016-11-02] MEDS: FOLIC ACID 1 MG TAB PO SCH (08:53)
[2016-11-02] MEDS ORDERED: PILL SPLITTER OTHER PRN (11:00)
[2016-11-02] MEDS: LOSARTAN 25 MG TAB PO SCH (11:34)
--- NOTE | 2016-11-02 12:04 | HHI.PR ---
Subjective Remarks Patient states he is feeling better today, feeling stronger. He ambulated to the bathroom with a walker and the help of the nurse. Patient denies tremors or hallucinations. Denies pain. No anxiety or confusion. Objective Vitals Vital Signs Date Time Temp Pulse Resp B/P (MAP) Pulse Ox O2 Delivery O2 Flow Rate FiO2 11/02/16 08:18 96 11/02/16 08:00 98.1 80 20 121/74 (90) 99 11/02/16 05:33 97.1 59 12 159/94 (115) 93 11/02/16 00:08 98.2 74 14 148/92 (110) 95 11/01/16 23:00 80 11/01/16 21:08 98.7 95 14 159/90 (113) 92 11/01/16 20:00 95 21 11/01/16 16:00 98.5 93 18 157/92 (113) 98 I/O 11/01/16 11/01/16 11/01/16 11/02/16 11/02/16 11/02/16 07:00 15:00 23:00 07:00 15:00 23:00 Intake Total 1950 ml 550 ml 1000 ml Output Total 3 ml Balance 1950 ml 550 ml -3 ml 1000 ml Intake IV Total 1950 ml 550 ml 1000 ml Output Urine Total 3 ml # Voids 2 1 2 2 # Bowel Movements 1 2 Result Diagram: 11/01/16 0950 11/01/16 0950 Objective Remarks GENERAL: Well-nourished, well-developed lean [place] male patient. SKIN: Warm and dry. HEAD: Normocephalic. EYES: No scleral icterus. No injection or drainage. NECK: Supple, trachea midline. No JVD or lymphadenopathy. CARDIOVASCULAR: Regular rate and rhythm without murmurs, gallops, or rubs. RESPIRATORY: Breath sounds equal bilaterally. No accessory muscle use. GASTROINTESTINAL: Abdomen soft, non-tender, nondistended. EXTREMITIES: No cyanosis, or edema. NEUROLOGICAL: Awake, alert, and oriented x 3. Non-focal. No tremors. A/P Problem List: (1) Rhabdomyolysis ICD Code: M62.82 - Rhabdomyolysis (2) Fall ICD Code: W19.XXXA - Unspecified fall, initial encounter Status: Acute (3) Acute kidney injury ICD Code: N17.9 - Acute kidney failure, unspecified Status: Acute (4) Elevated troponin I level ICD Code: R74.8 - Abnormal levels of other serum enzymes Status: Acute (5) Dehydration ICD Code: E86.0 - Dehydration Status: Acute (6) Alcohol withdrawal ICD Code: F10.239 - Alcohol dependence with withdrawal, unspecified Status: Acute (7) Hypokalemia ICD Code: E87.6 - Hypokalemia Assessment and Plan -Status post fall at home. No injuries or loss of consciousness. Head and cervical spine CT chest x-ray L negative. Continue physical therapy. Head CT and cervical spine CT negative. -Alcoholism, per the patient last drink was 12 days ago. No sign of withdrawal on exam. Continue alcohol withdrawal protocol and rally pack. Case management consulted for alcohol cessation programs. -Rhabdomyolysis. Continue normal saline, follow total CK. -Acute kidney injury secondary to dehydration. Improving. Continue IV fluids. -Hypokalemia, repeat BMP today. -Mild troponin 1 elevation without upward trend. Likely secondary to the rhabdomyolysis. No history of chest pain or coronary artery disease. EKG with sinus tachycardia, left anterior fascicular block. No significant ST changes. -Macrocytosis secondary to alcoholism. Hemoglobin normal. Continue folic acid. -Hypertension. Resume Cozaar today. -DVT prophylaxis with SCDs. Sabine Paul MD Nov 02, 2016 12:04
[2016-11-02 15:38] LABS: BICARBONATE 29.4 MEQ/L (21.0-32.0)
[2016-11-02 15:47] LABS: POTASSIUM 2.6 MEQ/L (3.5-5.1)
[2016-11-02] MEDS ORDERED: POTASSIUM CHLORIDE 20 MEQ CONTROLLED RELEASE TAB PO ONE (17:00)
[2016-11-02 18:50] LABS: BLOOD, URINE NEG (NEG); GLUCOSE,URINE 250 mg/dL (NEG); KETONE, URINE NEG (NEG); NITRITE,URINE NEG (NEG); PH, URINE 5.5 (5.0-8.5)
[2016-11-02 18:59] LABS: METHOD OF COLLECTION CLEAN CATCH
[2016-11-02 19:00] LABS: COMMENT (UR) CULT NOT INDICATED; CULTURE IF INDICATED CULT NOT INDICATED; RBC, URINE 0-3 /hpf (0-3); SQUAMOUS EPITHELIAL CELL URINE 0-5 /hpf (0-5); URINE COLOR YELLOW (YELLW/STRAW)
[2016-11-02] MEDS: POTASSIUM CHLORIDE 10 MEQ CONTROLLED RELEASE TAB PO SCH (21:43)
[2016-11-03] VITALS (7 sets, daily range): BP systolic 134–142; BP diastolic 81–93; PULSE 65–99; RESP 16–20; TEMP 95.8–98.6; O2SAT 98–100
[2016-11-03] MEDS: SODIUM CHLOR 0.9% 1000 ML INJ 1,000 ML IV SCH ×3 (04:15→14:00)
[2016-11-03] MEDS: DOCUSATE SODIUM 50 MG/SENNA 8.6 MG TAB PO SCH ×2 (09:00→20:51)
[2016-11-03] MEDS: FOLIC ACID 1 MG TAB PO SCH (09:08)
[2016-11-03] MEDS: THIAMINE HCL 100 MG TAB PO SCH (09:08)
[2016-11-03] MEDS: POTASSIUM CHLORIDE 10 MEQ CONTROLLED RELEASE TAB PO SCH ×2 (09:08→20:51)
[2016-11-03] MEDS: MULTIVITAMINS/MINERALS THERAPEUTIC TAB PO SCH (09:08)
[2016-11-03] MEDS: SODIUM CHLORIDE 0.9% FLUSH 10 ML FLUSH IV FLUSH SCH ×2 (09:09→20:52)
[2016-11-03] MEDS: LOSARTAN 25 MG TAB PO SCH (09:09)
[2016-11-03 09:15] LABS: BICARBONATE 28.3 MEQ/L (21.0-32.0); MAGNESIUM 1.5 MG/DL (1.5-2.5)
[2016-11-03 09:21] LABS: POTASSIUM 2.8 MEQ/L (3.5-5.1)
[2016-11-03] MEDS ORDERED: POTASSIUM CHLORIDE 10 MEQ CONTROLLED RELEASE TAB PO ONE (11:00)
[2016-11-03] MEDS: MAGNESIUM SULFATE 1 GM PREMIX 100 ML IV SCH ×2 (11:07→13:48)
--- NOTE | 2016-11-03 13:38 | HHI.PR ---
Subjective Remarks Follow-up for renal failure, rhabdomyolysis, hypokalemia related to alcohol use. Patient admits to some soreness in his abdomen and back which he has had since admission. He denies any chest pain or shortness of breath, abdominal pain, vomiting, or diarrhea. Denies tremors. Objective Vitals Vital Signs Date Time Temp Pulse Resp B/P (MAP) Pulse Ox O2 Delivery O2 Flow Rate FiO2 11/03/16 11:57 97.4 86 18 137/91 (106) 99 11/03/16 08:00 97.5 71 16 142/89 (106) 98 11/03/16 04:00 96.2 65 20 140/85 (103) 99 11/03/16 00:00 98.6 78 20 135/85 (102) 99 11/02/16 20:00 98.2 79 20 128/83 (98) 100 11/02/16 20:00 75 11/02/16 20:00 99 21 11/02/16 16:00 98.3 78 20 130/86 (101) 99 I/O 11/02/16 11/02/16 11/02/16 11/03/16 11/03/16 11/03/16 07:00 15:00 23:00 07:00 15:00 23:00 Intake Total 1000 ml 1580 ml 60 ml Balance 1000 ml 1580 ml 60 ml Intake Oral 780 ml 60 ml IV Total 1000 ml 800 ml # Voids 2 4 2 # Bowel Movements 1 0 Result Diagram: 11/01/16 0950 11/03/16 0646 Objective Remarks GENERAL: Pleasant well-developed patient in no apparent distress. EYES: EOMs intact. CARDIOVASCULAR: Regular rate and rhythm. RESPIRATORY: No accessory muscle use. Clear to auscultation. Breath sounds equal bilaterally. GASTROINTESTINAL: Active bowel sounds in all 4 quadrants. Abdomen soft, non- tender, nondistended. NEUROLOGICAL: Awake and alert. Normal speech. Very minimal hand tremors. 5/5 strength bilateral upper and lower extremities. PSYCHIATRIC: Appropriate mood and affect; insight and judgment normal. Urinary Catheter: No Vascular Central Line Catheter: No A/P Problem List: (1) Rhabdomyolysis ICD Code: M62.82 - Rhabdomyolysis Status: Acute (2) Fall ICD Code: W19.XXXA - Unspecified fall, initial encounter Status: Acute (3) Acute kidney injury ICD Code: N17.9 - Acute kidney failure, unspecified Status: Resolved (4) Hypokalemia ICD Code: E87.6 - Hypokalemia Status: Acute (5) Elevated troponin I level ICD Code: R74.8 - Abnormal levels of other serum enzymes Status: Acute (6) Dehydration ICD Code: E86.0 - Dehydration Status: Acute (7) Alcohol withdrawal ICD Code: F10.239 - Alcohol dependence with withdrawal, unspecified Status: Acute Assessment and Plan -Status post fall at home. No injuries or loss of consciousness. Head and cervical spine CT and chest x-ray without acute abnormalities. Continue physical therapy. -Alcoholism, per the patient last drink was 12 days ago. Very minor hand tremors on exam. Continue CIWA protocol and rally pack. Case management consulted for alcohol cessation programs. -Rhabdomyolysis. Resolved. CPK wnl today. Discontinue IVF. -Acute kidney injury secondary to dehydration. Resolved after IV fluids. -Hypokalemia. Repeat potassium level today 2.8. Patient already on scheduled KCl 30 mEq every 12 hours. Additional 30 mEq by mouth KCl ordered this morning. Magnesium level 1.5. 2 g IV mag sulfate ordered. Repeat potassium level improved this afternoon at 3.3, but will order another 20 mEq by mouth KCl now. Repeat Mg level good at 2.2. Recheck BMP in the morning. -Mild troponin 1 elevation with downward trend. Likely secondary to the rhabdomyolysis. No history of chest pain or coronary artery disease. EKG with sinus tachycardia, left anterior fascicular block. No significant ST changes. -Macrocytosis secondary to alcoholism. Hemoglobin normal. Continue folic acid. -Hypertension. Resume Cozaar today. -DVT prophylaxis with SCDs. Discharge Planning Physical therapy indicates patient will need home health care PT; will need initial nursing eval as well. school business manager informs me patient would prefer outpatient physical therapy. She found out from the patient's daughter the patient has been neglecting himself and the house has feces and hence why he does not want anyone to come to the house. The daughter informed the binder caser the patient has been [place] Acted 3 times since August this year. I informed binder caser that DCF may need to get involved. Not yet ready for discharge today. Rechecking electrolytes in the morning. Queenie York Nov 03, 2016 13:37
[2016-11-03 15:44] LABS: POTASSIUM 3.3 MEQ/L (3.5-5.1)
[2016-11-03] MEDS ORDERED: POTASSIUM CHLORIDE 20 MEQ CONTROLLED RELEASE TAB PO ONE (16:00)
[2016-11-03 16:04] LABS: MAGNESIUM 2.2 MG/DL (1.5-2.5)
[2016-11-04 01:08] VITALS: BP 136/79; PULSE 80; RESP 16; TEMP 98; O2SAT 98
[2016-11-04 04:01] VITALS: BP 148/87; PULSE 86; RESP 18; TEMP 98.1; O2SAT 99
[2016-11-04 07:32] LABS: POTASSIUM 3.9 MEQ/L (3.5-5.1)
[2016-11-04 07:52] LABS: BICARBONATE 29.7 MEQ/L (21.0-32.0)
[2016-11-04] MEDS: SODIUM CHLORIDE 0.9% FLUSH 10 ML FLUSH IV FLUSH SCH (08:34)
[2016-11-04] MEDS: THIAMINE HCL 100 MG TAB PO SCH (08:34)
[2016-11-04] MEDS: MULTIVITAMINS/MINERALS THERAPEUTIC TAB PO SCH (08:34)
[2016-11-04] MEDS: LOSARTAN 25 MG TAB PO SCH (08:35)
[2016-11-04] MEDS: DOCUSATE SODIUM 50 MG/SENNA 8.6 MG TAB PO SCH ×2 (08:35→08:43)
[2016-11-04] MEDS: FOLIC ACID 1 MG TAB PO SCH (08:35)
[2016-11-04] MEDS: POTASSIUM CHLORIDE 10 MEQ CONTROLLED RELEASE TAB PO SCH (08:35)
[2016-11-04 09:59] VITALS: BP 158/91; PULSE 80; RESP 15; TEMP 96.7; O2SAT 100
--- NOTE | 2016-11-04 10:23 | HHI.FF ---
Face to Face Verification Diagnosis: (1) Alcoholism (2) Acute kidney injury (3) Hypokalemia (4) Fall Physical Therapy Order: Evaluate and Treat Home Health Nursing Order: Medical education [employer] Order: To Evaluate: Living conditions/environment, Support services Order: To Provide: Community services I have seen patient Jose Whitfield on 11/04/16. My clinical findings support the need for the requested home health care services because: Deconditioned w/ increased weakness Med compliance is questionable Need for psychosocial assistance I certify that my clinical findings support that this patient is homebound because: Unsteady gait/balance Need for psychosocial assistance Sabine Paul MD Nov 04, 2016 10:23
--- NOTE | 2016-11-04 10:27 | HHI.DS ---
Discharge Summary Admission Date Oct 31, 2016 at 22:44 Discharge Date: Nov 04, 2016 Admitting Diagnosis FAll; alcohol withdrawal; dehydratyion; elevated troponin I (1) Rhabdomyolysis ICD Code: M62.82 - Rhabdomyolysis Status: Acute (2) Fall ICD Code: W19.XXXA - Unspecified fall, initial encounter Status: Acute (3) Acute kidney injury ICD Code: N17.9 - Acute kidney failure, unspecified Status: Resolved (4) Hypokalemia ICD Code: E87.6 - Hypokalemia Status: Acute (5) Elevated troponin I level ICD Code: R74.8 - Abnormal levels of other serum enzymes Status: Acute (6) Dehydration ICD Code: E86.0 - Dehydration Status: Acute (7) Alcohol withdrawal ICD Code: F10.239 - Alcohol dependence with withdrawal, unspecified Status: Acute Procedures None Brief History - From Admission This is a pleasant 66-year-old male with past medical history of alcoholism and hypertension who presented to the ER yesterday after being found laying on the floor by his daughter. [facility] was called. The patient states that he quit drinking alcohol 12 days ago and since then has been getting weaker. Yesterday early in the morning he fell and was unable to get back up. He called his daughter who arrived about an hour later. The patient denies injuring himself. He does state that his but is somewhat sore. He denies syncope. Patient denies nausea vomiting diarrhea hematemesis melena. He states he lives with his daughter in a house. CBC/BMP: 11/01/16 0950 11/04/16 0603 Significant Findings Laboratory Tests Test 11/02/16 14:16 11/02/16 18:30 11/03/16 06:46 11/03/16 15:20 Random Glucose 150 MG/DL (74-106) Calcium Level 7.7 MG/DL (8.5-10.1) 7.8 MG/DL (8.5-10.1) Potassium Level 2.6 MEQ/L (3.5-5.1) 2.8 MEQ/L (3.5-5.1) 3.3 MEQ/L (3.5-5.1) Estimat Glomerular Filtration Rate 81 ML/MIN (>89) Urine Glucose (UA) 250 mg/dL (NEG) Creatinine 0.51 MG/DL (0.60-1.30) Test 11/04/16 06:03 Imaging Last Impressions Head CT 10/31/162007 Signed Impressions: Service Date/Time: Monday, October 31, 2016 21:40 - CONCLUSION: Normal examination for a patient of this age. No significant change has occurred. Jerod Kim MD Chest X-Ray 10/31/16 Signed Impressions: Service Date/Time: Monday, October 31, 2016 22:26 - CONCLUSION: No acute disease. Jerod Kim MD Cervical Spine CT 10/31/16 Signed Impressions: Service Date/Time: Monday, October 31, 2016 21:40 - CONCLUSION: 1. Moderate disc disease. No acute fracture. Stable spondylolisthesis of C7 on T1. No prevertebral soft tissue swelling. No significant change from July 2016. Jerod Kim MD PE at Discharge GENERAL: Pleasant well-developed patient in no apparent distress. EYES: EOMs intact. CARDIOVASCULAR: Regular rate and rhythm. RESPIRATORY: No accessory muscle use. Clear to auscultation. Breath sounds equal bilaterally. GASTROINTESTINAL: Active bowel sounds in all 4 quadrants. Abdomen soft, non- tender, nondistended. NEUROLOGICAL: Awake and alert. Normal speech. Very minimal hand tremors. 5/5 strength bilateral upper and lower extremities. PSYCHIATRIC: Appropriate mood and affect; insight and judgment normal. Hospital Course The patient was admitted to the hospital. He was treated for rhabdomyolysis and acute kidney injury with IV fluids. Electrolytes were repleted. He had mild troponin 1 elevation with downward trend likely secondary to the rhabdomyolysis no history of chest pain or coronary artery disease EKG was negative. The patient was placed on alcohol withdrawal prophylaxis however did not distribute any signs or symptoms of alcohol withdrawal. He was not intoxicated on admission. The patient tells me that he has not had any alcohol in 2 weeks and he is very motivated to stop drinking. He states he has previously been involved with Alcoholics Anonymous and plans to rejoin upon discharge and states there is a location within walking distance of his home. The patient declines to consider inpatient alcoholism addiction treatment. Home health care physical therapy has been ordered. With the patient's permission I discussed the patient with his daughter who lives next door and the same duplex. Daughter has concerns about patient's compliance with staying away from alcohol. She also states that his house is dirty with Feces. She states she has tried to [place] him several times over the past month but was unable to make the court appearances so was unsuccessful. She states she plans to pursue [place] [employer] as she is highly doubtful that her father will abstain from alcohol. I discussed that the patient has had no signs of withdrawal and at this time states he is motivated to stay away from alcoholism and will follow-up with AA. I did discuss that if he relapses she can pursue [place] to the [place], with possible court mandated alcoholism treatment. Home health care with foster care social worker evaluation for his home has also been ordered. Pt Condition on Discharge: Stable Discharge Disposition: Disch w/ Home Health Serv Discharge Time: > 30 minutes Discharge Instructions DIET: Follow Instructions for: As Tolerated, No Restrictions Activities you can perform: Regular-No Restrictions Continued Medications: B-Complex Vitamins (Vitamin B Complex) 1 Tab Cholecalciferol (Vitamin D3) 2,000 Unit Cap 2000 UNITS PO DAILY for Nutritional Supplement, #1 BOTTLE 0 Refills Folic Acid (Folic Acid) 1 Mg Tablet Glucosam/Chondr/Collagn/Hyalur (Glucosamine & Chondroitin Cap) 1 Each Capsule Hydrocodone-Acetaminophen (Lortab) 5-325 Mg Tab 1 TAB PO Q4H PRN for PAIN, TAB 0 Refills Krill Oil (Krill Oil) 500 Mg Capsule 300 Losartan (Losartan) 25 Mg Tab 12.5 MG PO DAILY for Blood Pressure Management, #15 TAB 0 Refills Multiple Vitamin (Multi Vitamin Mens) 1 Tab Tab Multiple Vitamins W/ Minerals (Antioxidant) 1 Cap Cap Discontinued Medications: Olmesartan (Olmesartan) 20 Mg Tab 20 MG PO DAILY for Blood Pressure Management, #30 TAB 0 Refills Sabine Paul MD Nov 04, 2016 10:27
[2016-11-04 12:00] VITALS: BP 140/89; PULSE 99; RESP 15; TEMP 96; O2SAT 100
[2016-11-04 17:03] VITALS: BP 140/89; PULSE 99; RESP 15; TEMP 98; O2SAT 100
== END 2016-11-04 17:32 | disposition home health service (06) | DRG 683 ==
LOC: PHED 19:54 → PHEDA 22:44 → PH3B 23:35
PROVIDERS: ADMIT Family Medicine; ATTEND Family Medicine
DX: N17.9 Acute kidney failure, unspecified (principal); M62.82 Rhabdomyolysis; R55 Syncope and collapse; E86.0 Dehydration; F17.210 Nicotine dependence, cigarettes, uncomplicated; I10 Essential (primary) hypertension; D75.89 Other specified diseases of blood and blood-forming organs; W19.XXXA Unspecified fall, initial encounter; E87.6 Hypokalemia; F10.20 Alcohol dependence, uncomplicated
CPT/HCPCS: 70450; 71010; 72125; 80048; 80053; 80307; 81001; 82550; 82552; 82948; 83605; 83735; 84132; 84484; 85007; 85025; 85027; 85610; 85730; 87040; 93005; 96365; G8987-GP; G8988-GP; J2060; J3411; J3475; J7030